=== PATIENT | female | born 1995 | race Caucasian/White ===

== ENCOUNTER → 2021-06-06 14:19 | Outpatient (CLI) | payer OTHER, MEDICAID, SELFPAY ==
[2021-06-06 16:55] LABS: Urine N gonorrhoeae NOT DETECTED
[2021-06-06 17:02] LABS: Urine Chlamydia NOT DETECTED
== END ==
PROVIDERS: Referring Provider Nurse Practitioner Family; Visit Provider Nurse Practitioner Family
DX: N89.8 Other specified noninflammatory disorders of vagina (principal); N39.0 Urinary tract infection, site not specified
CPT/HCPCS: 81002; 87086; 87210; 87491; 87591